=== PATIENT | female | born 2000 | race Caucasian/White ===

== ENCOUNTER → 2020-02-27 10:26 | Outpatient (CLI) | payer OTHER, SELFPAY ==
--- NOTE | 2020-02-27 10:34 | US_ITS ---
PROCEDURE: US TRANSVAGINAL CLINICAL INDICATION: rt. lower quadrant pain and rt. ovarian cyst COMPARISON: CT ABDPELW/O CT ABD PELVIS W/O CONTRAST from 02/15/2017 FINDINGS: UTERUS: 8cm x 5cmx 4cm with a combined endometrial thickness of 6mm LEFT OVARY: [id number] with a volume of 37.8ml. RIGHT OVARY: [id number] with a volume of 6.2ml. There is a 3.6 x 3 cm left ovarian cyst. A smaller cyst is seen along the lateral wall of this cyst. Small amount of fluid is present in the endocervical canal. No cul-de-sac fluid apparent. IMPRESSION: There is a 3.6 cm left ovarian cyst which contains a smaller cyst along the lateral wall. Suggest follow-up to confirm stability/resolution Dictated b Jayjay Fabian MD 02/27/2020 19:17 Jayjay Fabian MD in OV 02/27/2020 19:17
== END ==
PROVIDERS: PCP Family Medicine; Visit Provider Nurse Practitioner Obstetrics & Gynecology
DX: R10.31 Right lower quadrant pain (principal); N83.201 Unspecified ovarian cyst, right side
CPT/HCPCS: 76830

== ENCOUNTER → 2020-07-10 09:51 | Outpatient (CLI) | payer OTHER, SELFPAY ==
[2020-07-10 10:30] LABS: Urine Pregnancy, HCG Qual. Negative (Negative)
[2020-07-10 10:36] LABS: Basophils # 0.1 K/mm3 (0-0.2); Basophils % 0.7 % (0.1-2.0); Eosinophils # 0.1 K/mm3 (0.0-0.4); Eosinophils % 1.4 % (0.1-12.0); Hematocrit 41.5 % (37.0-47.0); Hemoglobin 14.8 g/dL (12.2-16.2); Lymphocytes % 30.1 % (10-50); Mean Corpuscular HGB Conc 35.6 g/dL (31.8-35.4); Mean Corpuscular Hemoglobin 31.7 pg (27.0-31.2); Mean Corpuscular Volume 89.2 fl (81-99); Mean Platelet Volume 8.3 fl (7.4-10.4); Monocytes # 0.4 K/mm3 (0.1-1.0); Monocytes % 6.1 % (1.7-9.3); Neutrophils # 4.1 K/mm3 (1.8-7.8); Neutrophils % 61.7 % (37.0-80.0); Platelet Count 409 K/mm3 (142-424); Red Blood Count 4.65 M/mm3 (4.20-5.40); Red Cell Distribution Width 13.6 % (11.5-17.5); White Blood Count 6.6 K/mm3 (4.8-10.8)
[2020-07-10 11:53] LABS: Coronavirus 19 IgG Antibody Negative (Negative); Coronavirus 19 IgM Antibody Negative (Negative)
== END ==
PROVIDERS: Visit Provider Otolaryngology
DX: Z01.818 Encounter for other preprocedural examination (principal); Z03.818 Encounter for observation for suspected exposure to other biological agents ruled out; J30.9 Allergic rhinitis, unspecified; J34.2 Deviated nasal septum; J34.3 Hypertrophy of nasal turbinates
CPT/HCPCS: 36415; 81025; 85025; 86328

== ENCOUNTER 2020-07-11 06:11 | Day surgery (SDC) | payer OTHER, SELFPAY ==
[2020-07-09 12:35] VITALS: BMI 42.0
[2020-07-11] VITALS (10 sets, daily range): BP systolic 121–145; BP diastolic 59–93; PULSE 72–100; RESP 12–18; TEMP 36.4–36.8; O2SAT 95–97
--- NOTE | 2020-07-11 07:09 | P.PN_ITS ---
[facility] Anesthesia Checklist - Structural Data Admitted From: Home Planned Operative Procedure/s: nasal septoplasty Consent for Planned Operative Procedure(s) Verified: Yes - Additional verifications Anesthesia Reactions: No Hx Blood Transfusions: No Blood Transfusion Reaction: No - Airway Assessment C-Spine Mobility Assessed: Yes TMJ Mobility Assessed: Yes Dentition: Good Dentition - Neurological Assessment Level of Consciousness: Awake, Alert, Appropriate - Anesthesia Plan Anesthesia Risk discussed: Yes Anesthesia Plan: Verified ASA Class: III Anesthesia Type: General [facility] History I have reviewed the patient's past medical history: Yes Medical History: Reports:: Kidney Stones, Nephritis Denies:: Cancer, Diabetes Mellitus Type 1, Diabetes Mellitus Type 2, Internal Pacemaker, MRSA, Seizures *Have you ever received a pneumonia vaccine?: No *Have you received a flu vaccine this season?: No Other Medical History: Denies: Blood Transfusion Reaction Anesthesia experience/problems:: none Laterality Cases: Left: Arthroscopy Knee, Bilateral: Myringotomy (Ear Tubes) Other Surgeries: No: Cancer Surgery, Pacemaker Amputation: No Fractures: No - *Social History Last grade of school completed: High school graduate Smoking Status: Current every day smoker Tobacco Type: cigarettes # Packs/Day (cigarettes): 1 Alcohol Intake: never Substance Use Type: denies use *Occupational Status:: employed Housing: house Household Members: family *Travel in the last 8 weeks: None Family Hx:: No significant family history
--- NOTE | 2020-07-11 08:49 | P.OP_ITS ---
Date of procedure: 07/11/20 Pre-op Diagnosis:: 1. Deviated nasal septum with 90% nasal airflow blockage 2. Hypertrophied bilateral inferior turbinates Post-op Diagnosis:: same Procedure performed:: 1. Nasal septoplasty 2. Bilateral submucous turbinectomies Surgeon:: Reid Gomez MD [employer] [place] SUPPORT:: Amari Dumont Anesthesia: GETA Estimated blood loss (mL): 10 Operative findings:: same Operative note:: With the patient under general anesthesia having been given 1 g of Ancef and 12 mg of Decadron the face was prepped and draped. The eyes were protected with the Steri-Strips. The nose was decongested with topical cocaine and 4 cc of 2% lidocaine with epi were injected into the nasal septum and the nasal antral padgett, there was a severe deviation of the nasal septum to the left anteriorly and to the right posteriorly. A left hemitransfixion incision was made in the mucoperichondrium and mucoperiosteum was elevated from both sides of the nasal septum. The quadrangular cartilage was severely deformed and it was trimmed anteriorly inferiorly and posteriorly. When that was done it was possible to realign the septum in the midline and hold it there with transfixion chromic sutures after Surgicel snow was placed between the flaps. Both inferior turbinates were hyperplastic using the turbinectomy reduction techniques and instruments including the turbinectomy scissors the left inferior turbinate was reduced by 50% in size. Similarly using the same instruments the right inferior turbinate was reduced by 50% in size. Bleeding for all the procedure was less than 10 cc and completely stopped. Bacitracin ointment was placed in the nostrils. And the patient was sent to recovery in good general condition after a drip pad was placed under the nose. The patient was sent to recovery in good general condition. Condition: stable Disposition: PACU Complications:: none
--- NOTE | 2020-07-11 08:56 | HMH.ANESI ---
[facility] Anesthesia Record Part I Intake, IV Amount: 1,500 Estimated blood loss (mL): 0 Urine output (mL): 0 Blood Pressure: 145/93 SaO2: 95 Pulse Rate: 100 Respiratory Rate: 12 Temperature: 98.1 F Patient is:: Awake, Stable Stable to PACU at:: 08:55
--- NOTE | 2020-07-11 09:36 | PC.NURSE ---
09-pt taking sips of ice water w/out difficulty, denies nausea 922-detailed report called to Barak,RN 924-pt transported to post op via stretcher w/zita rails up and left in care of NOMAN Cancino with bed locked in lowest position, vss, pt stable
--- NOTE | 2020-07-12 12:33 | P.PN_ITS ---
[facility] Anesthesia Record Part II Discharge Time: 09:25 Destination: [facility] PACU nurse assessment reviewed?: Yes Patient Condition:: Good Anesthesia Complications:: None Swallowing reflex intact?: Yes Cyanosis?: No Blood Pressure: 121/81 Pulse Rate: 72 Temperature: 97.5 F Mental Status: Alert & Oriented Pain level:: 2 Nausea and/or vomitting:: None Intake, IV Amount: 1,500
[2020-07-12 12:34] VITALS: BP 121/81; PULSE 72; TEMP 36.4
== END 2020-07-11 09:56 | disposition home or self-care (01) ==
LOC: OR 06:13
PROVIDERS: Visit Provider Otolaryngology
PROC: (CPT 30520; principal; 2020-07-11 07:30)
DX: J34.2 Deviated nasal septum (principal); J34.3 Hypertrophy of nasal turbinates; Z87.442 Personal history of urinary calculi; Z87.448 Personal history of other diseases of urinary system; Z87.891 Personal history of nicotine dependence
CPT/HCPCS: 30140; 30520; 96374; 96375; J2405; J2710

== ENCOUNTER → 2020-11-04 10:27 | Outpatient (CLI) | payer OTHER, SELFPAY ==
[2020-11-04 12:13] LABS: HCG,Quantitative < 2 mIU/ml (0-5.42)
== END ==
PROVIDERS: Visit Provider Nurse Practitioner Obstetrics & Gynecology
DX: Z34.90 Encounter for supervision of normal pregnancy, unspecified, unspecified trimester (principal)
CPT/HCPCS: 36415; 84702

== ENCOUNTER 2025-03-28 08:47 | Outpatient (CLI) | payer BC, SELFPAY ==
--- OUTSIDE RECORDS SUMMARY | 2025-03-28 09:05 | XMS_ITS | Clinical Summary ---
Author Organization [facility] Address [address] [place] [address] Phone Care Team Providers Care Slack Cooper Name Role Phone No Pcp, Per Patient Primary Care Provider Unavai lable Allergies No known active allergies Medications amoxicillin-cla vulanate (AUGMENTIN) 875-125 mg Oral Tablet Take 875 mg by mouth 2 times daily. Active promethazine-de xtromethorphan (PROMETHAZINE-D M) 6.25-15 mg/5 mL Oral SyrupIndication s:Acute cough Take 5 mL by mouth every 6 hours as needed. 237 mL 4 Active Additional Information Patient not taking.Reason: Therapy Completed, Reported on 05/13/2024 buPROPion (WELLBUTRIN XL) 150 mg Oral Tablet Sustained Release 24 hr 150 mg. 4 Active Etonogestrel (NEXPLANON) 68 mg Sdrm Implant Once 4 Active metFORMIN (GLUCOPHAGE) 500 mg Oral Tablet 500 mg. 4 Active naltrexone (REVIA) 50 mg Oral Tablet 50 mg. 4 Active Active Problems Problem Noted Date Diagnosed Date Foot sprain, left, initial encounter 11/24/2022 Sprain of left ankle 11/24/2022 Kidney stone 09/19/2013 Chronic abdominal pain 09/19/2013 Lateral meniscus tear 08/01/2012 Overview (08/01/2012): 07-01-12: Injury report scanned. Dr. Diaz 07-12-12: MRI reveals lateral meniscus tear in a radial fashion. Surgical management planned. Dr. Miles report scanned. Immunizations Immunization Administration Dates Next Due DTaP 03/28/2003, 3,11/10/1999,05/21,03/24/1999 Hepatitis B, Unspecified Formulation 11/10/1999, 05/21/1999,1998 HiB, Unspecified Formulation 09/04/2002, 11/10/1999,05/21/1999,03/24 IPV 11/22/2002, 0,05/21/1999,03/24 Influenza Vaccine, Unspecifi ed Formulation 05/27/2010 MMR 11/22/2002,03/10/2000 Meningococcal Conjugate 05/27/2010 Tdap 05/20/2020,05/27/2010 Varicella 02/26/2011,07/26/2000 Surgical History Surgery Date Site/Laterality Comments KNEE ARTHROSCOPY 08/03/2012 Left LEFT KNEE ARTHROSCOPY PARTIAL LATERAL MENISCECTOMY ; Surgeon: Jaziel Miles MD; Location: [facility]; Service: Orthopedics Medical History Medical History Date Comments Kidney stones Ovarian cyst Kidney stones Family History Medical History Relation Name Comments Urolithiasis Brother Urolithiasis Father Heart Disease Maternal Grandfather Heart Disease Maternal Grandmother COPD Mother Anesth Problems Neg Hx Relation Name Status Comments Brother Father Maternal Grandfather Maternal Grandmother Mother Social History Tobacco Use Types Packs/Day Years Used Date Smoking Tobacco: Former Cigarettes Smokeless Tobacco: Never Tobacco Cessation:Counseling Given: Not Answered Alcohol Use Standard Drinks/Week Comments No 0 (1 standard drink = 0.6 oz pur e alcohol) Sexually Active Control Partners Comments Not Currently Comments No Sex and Gender Information Value Date Recorded Sex Assigned at Not on file Legal Sex Female 9:07 AM EDT Gender Identity Not on file Sexual Orientation Not on file Obstetrics History Last Filed Vital Signs Vital Sign Reading Time Taken Comments Blood Pressure 140/76 05/13/2024 12:09 AM EDT Pulse 99 05/13/2024 12:09 AM EDT Temperature 36.8 C (98.3 F) 05/13/2024 12:09 AM EDT Respiratory Rate 16 05/13/2024 12:09 AM EDT Oxygen Saturation 99% 05/13/2024 12:09 AM EDT Inhaled Oxygen Concentration - - Weight 118.8 kg (262 lb) 10/09/2023 4:28 PM EDT Height 157.5 cm (5' 2 ) 10/09/2023 4:28 PM EDT Body Mass Index 47.92 10/09/2023 4:28 PM EDT Plan of Treatment Health Maintenance Due Date Last Done Comments Annual Wellness Exam 2001 HPV (1 - 3-dose series) 2013 Cervical Cancer Screening 11/21/2019 Pap Smear 11/21/2019 COVID-19 Vaccine ( season) 2024 12/04/2020, 11/06/2020 Influenza Vaccine (#1) 2025 05/27/2010, 2009 DTaP/TDaP/Td (8 - Td or Tdap) 05/20/2030 05/20/2020, 05/27/2010, 03/28/2003, Additional history exists Hepatitis B Vaccine Completed 11/10/1999, 05/21/1999, 1998 Meningococcal B Vaccine Aged Out No l onger eligible based on patient's age to complete this topic Pneumococcal Vaccine 0-49 Aged Out No longer eligible based on patient's age to complete this topic Goals Goal Patient Goal Type Associated Problems Recent Progress Patient-Stated? Author Maintain a healthy diet, exercise regularly and maintain an ideal body weight General No Ban Cottrell, Clerical Staff Stay Tobacco Free Lifestyle No Ban Cottrell, Clerical Staff Insurance [facility] [place] [address] Care Teams Slack Cooper Relationship Specialty Start Date End Date No Pcp, Per Patient PCP - General 05/13/24
--- OUTSIDE RECORDS SUMMARY | 2025-03-28 09:05 | XMS_ITS | Clinical Summary ---
Author Organization [facility] Address [address] [place] [address] Care Team Providers Care Analyst Competitive Intelligence Name Role Phone Annabella Jauregui M.D. Primary Care Provider [phone] Source Comments [facility] is fully rolled out with thefollowing exceptions:[facility] Allergies No known active allergies Medications HYDROcodone-acet aminophen (VICODIN) 5-500 MG tablet Take 5 mg by mouth. Active ondansetron (ZOFRAN) 4 MG tablet Active ibuprofen (MOTRIN) 100 MG tablet Active Active Problems Problem Noted Date Diagnosed Date Urolithiasis 04/12/2012 Family History Medical History Relation Name Comments Heart Problems Maternal Grandfather Heart Problems Maternal Grandmother COPD Mother Relation Name Status Comments Maternal Grandfather Maternal Grandmother Mother Social History Tobacco Use Types Packs/Day Years Used Date Smoking Tobacco: Never Alcohol Use Standard Drinks/Week Comments No 0 (1 standard drink = 0.6 oz pur e alcohol) Comments Unknown Sex and Gender Information Value Date Recorded Sex Assigned at Not on file Legal Sex Female 5:34 AM EST Gender Identity Not on file Sexual Orientation Not on file Last Filed Vital Signs Vital Sign Reading Time Taken Comments Blood Pressure 98/52 05/18/2015 6:49 AM EDT Pulse 78 05/18/2015 6:49 AM EDT Temperature 36.6 C (97.9 F) 05/18/2015 6:49 AM EDT Respiratory Rate 16 05/18/2015 6:49 AM EDT Oxygen Saturation 99% 08/16/2014 8:03 PM EST Inhaled Oxygen Concentration - - Weight 84.3 kg (185 lb 13.6 oz) 015 11:35 PM EDT Height 157.5 cm (5' 2.01 ) 08/16/2014 2:25 PM ES T Body Mass Index - - Plan of Treatment Health Maintenance Due Date Last Done Comments MMR IMMUNIZATION (1 of 1 - S tandard series) 11/21/1999 DTAP/Tdap/Td IMMUNIZATION (1 - Tdap) 2005 VARICELLA IMMUNIZATION (1 of 2 - 13+ 2-dose series) 11/21/2011 HPV IMMUNIZATION (1 - 3-dose series) 2013 HEPATITIS B IMMUNIZATION (1 of 3 - 19+ 3-dose series) 2017 AMB SEASONAL FLU VACCINE (#1) 03/26/2025 COVID-19 Vaccine (1 - 2023-2 5 season) 2025 HIB IMMUNIZATION Aged Out No longer e ligible based on patient's age to complete this topic IPV IMMUNIZATION Aged Out No longer e ligible based on patient's age to complete this topic MCV4 IMMUNIZATION Aged Out No longer eligible based on patient's age to complete this topic MENINGOCOCCAL B VACCINE Aged Out No l onger eligible based on patient's age to complete this topic PNEUMOCOCCAL IMMUNIZATION Aged Out No longer eligible based on patient's age to complete this topic Respiratory Syncytial Virus (RSV) <20mo Aged Out No longer eligible b ased on patient's age to complete this topic Insurance [employer] [facility] Care Teams Analyst Competitive Intelligence Relationship Specialty Start Date End Date Annabella Jauregui M.D. [address] [place] [address] PCP - General External Family Practice 03/14/12
== END 2025-03-28 23:59 | disposition home or self-care (01) ==
LOC: LAB 08:47
PROVIDERS: Visit Provider Nurse Practitioner Obstetrics & Gynecology
DX: Z34.90 Encounter for supervision of normal pregnancy, unspecified, unspecified trimester (principal); N92.6 Irregular menstruation, unspecified; Z3A.00 Weeks of gestation of pregnancy not specified
CPT/HCPCS: 36415; 84144; 84702

== ENCOUNTER 2025-04-02 11:24 | Outpatient (CLI) | payer BC, SELFPAY ==
--- OUTSIDE RECORDS SUMMARY | 2025-04-02 11:28 | XMS_ITS | Clinical Summary ---
Author Organization [facility] Address [address] [place] [address] Phone Care Team Providers Care Branch General Manager Name Role Phone No Pcp, Per Patient [...] MENISCECTOMY ; Surgeon: Jaziel Miles MD; Location: [facility]; Service: Orthopedics Medical History Medical History [...] Screening 11/21/2019 Pap Smear 11/21/2019 COVID-19 Vaccine (3 - season) 2025 12/04/2020, 11/06/2020 Influenza Vaccine (#1) 2025 05/27/2010, [...] Lifestyle No Ban Cottrell, Clerical Staff Insurance [facility] [place] [address] Care Teams Branch General Manager Relationship Specialty Start Date End Date No Pcp, Per Patient PCP - General 05/13/24
--- OUTSIDE RECORDS SUMMARY | 2025-04-02 11:28 | XMS_ITS | Clinical Summary ---
Author Organization [facility] Address [address] [place] [address] Care Team Providers Care Information Support Project Manager Name Role Phone Annabella Jauregui M.D. Primary Care Provider [phone] Source Comments [facility] is fully rolled out with thefollowing exceptions:[facility] Allergies No known active allergies Medications [...] age to complete this topic Insurance A[employer] [facility] Care Teams Information Support Project Manager Relationship Specialty Start Date End Date Annabella Jauregui M.D. [address] [place] [address] PCP - General External Family Practice 03/14/12
== END 2025-04-02 23:59 | disposition home or self-care (01) ==
LOC: LAB 11:25
PROVIDERS: Visit Provider Obstetrics & Gynecology
DX: Z34.90 Encounter for supervision of normal pregnancy, unspecified, unspecified trimester (principal); Z3A.00 Weeks of gestation of pregnancy not specified
CPT/HCPCS: 36415; 84702

== ENCOUNTER 2025-04-23 10:45 | Outpatient (CLI) | payer BC, SELFPAY ==
--- OUTSIDE RECORDS SUMMARY | 2025-04-23 10:51 | XMS_ITS | Clinical Summary ---
Author Organization [facility] Address [address] [place] [address] Care Team Providers Care Hr Associate Name Role Phone Annabella Jauregui M.D. Primary Care Provider [phone] Source Comments [facility] is fully rolled out with thefollowing exceptions:[facility] Allergies No known active allergies Medications [...] age to complete this topic Insurance AETNA [facility] Care Teams Hr Associate Relationship Specialty Start Date End Date Annabella Jauregui M.D. [address] [place] [address] PCP - General External Family Practice 03/14/12
--- OUTSIDE RECORDS SUMMARY | 2025-04-23 10:51 | XMS_ITS | Clinical Summary ---
Author Organization [facility] Address [address] [place] [address] Phone Care Team Providers Care Lead Slot Technician Name Role Phone No Pcp, Per Patient [...] MENISCECTOMY ; Surgeon: Jaziel Miles MD; Location: [facility]; Service: Orthopedics Medical History Medical History Date [...] Pap Smear 11/21/2019 COVID-19 Vaccine (3 - 2024- season) 2025 12/04/2020, 11/06/2020 Influenza Vaccine (#1) [...] Lifestyle No Ban Cottrell, Clerical Staff Insurance [employer] PPO Member Subscriber Plan / Payer (Ef fective 2023-Present) Name:Izabella Ino Harrison Relation to Subscriber:Self Name:Kris Parekhhema Harrison Payer ID:[id number] (NAIC) Group ID:Not on file Type:Not on file Address: [address] [place] [phone] Care Teams Lead Slot Technician Relationship Specialty Start Date End Date No Pcp, Per Patient PCP - General 05/13/24
[2025-04-23 11:02] LABS: Hematocrit 37.7 % (37.0-47.0); Hemoglobin 12.9 g/dL (12.2-16.2); Immature Granulocytes % 0.3 %; Mean Corpuscular HGB Conc 34.2 g/dL (31.8-35.4); Mean Corpuscular Hemoglobin 29.4 pg (27.0-31.2); Mean Corpuscular Volume 85.9 fl (81-99); Nucleated Red Blood Cells % 0 %; Platelet Count 375 K/mm3 (142-424); Red Blood Count 4.39 M/mm3 (4.20-5.40); Red Cell Distribution Width-SD 39.9 fL; White Blood Count 7.0 K/mm3 (4.8-10.8)
[2025-04-23 18:03] LABS: Hepatitis C Ab Qual. W/ RFX NEGATIVE (Negative)
[2025-04-24 06:21] LABS: Hepatitis B Surface Antigen Negative (Negative); Rubella Antibodies, IgG 2.02 index (Immune >0.99)
[2025-04-24 15:14] LABS: RPR W/RFX Titers Nonreactive (Nonreactive)
== END 2025-04-23 23:59 | disposition home or self-care (01) ==
LOC: LAB 16:29
PROVIDERS: Visit Provider Nurse Practitioner Obstetrics & Gynecology
DX: O23.40 Unspecified infection of urinary tract in pregnancy, unspecified trimester (principal); Z3A.00 Weeks of gestation of pregnancy not specified
CPT/HCPCS: 36415; 85025; 86592; 86762; 86803; 86850; 87086; 87340; 87389

== ENCOUNTER 2025-04-27 10:05 | Outpatient (CLI) | payer BC, SELFPAY ==
--- OUTSIDE RECORDS SUMMARY | 2025-04-27 10:08 | XMS_ITS | Clinical Summary ---
Author Organization [facility] Address [address] [place] [address] Care Team Providers Care Carpet Layer Name Role Phone Annabella Jauregui M.D. Primary Care Provider [phone] Source Comments [facility] is fully rolled out with thefollowing exceptions:[facility] Allergies No known active allergies Medications HYDROcodone-acet [...] age to complete this topic Insurance [employer] [facility] Care Teams Carpet Layer Relationship Specialty Start Date End Date Annabella Jauregui M.D. [address] [place] [address] PCP - General External Family Practice 03/14/12
--- OUTSIDE RECORDS SUMMARY | 2025-04-27 10:08 | XMS_ITS | Clinical Summary ---
Author Organization [facility] Address [address] [place] [address] Phone Care Team Providers Care Private Sector Executive Name Role Phone No Pcp, Per Patient [...] MENISCECTOMY ; Surgeon: Jaziel Miles MD; Location: [facility]; Service: Orthopedics Medical History Medical History [...] Subscriber Plan / Payer (Ef fective 2023-Present) Name:WilmanmargaretIno Relation to Subscriber:Self Name:Izabella Ino Harrison Payer ID:[id number] (NAIC) Group ID:Not on file Type:Not on file Address: [address] [place] [phone] Care Teams Private Sector Executive Relationship Specialty Start Date End Date No Pcp, Per Patient PCP - General 05/13/24
--- NOTE | 2025-04-27 10:30 | US_ITS ---
PROCEDURE: US OB TRANSVAGINAL CLINICAL INDICATION: dates and viability COMPARISON: No exams were available for comparison FINDINGS: Transvaginal sonographic images of the pelvis were obtained. From her last menstrual period she is 8weeks 0 days. An intrauterine gestational sac is present with a pole with a crown-rump length of 1.73cm This correlates to a gestational age of 8weeks 2days. CORRINE 12/07/2025 heart tones are present with an FHR of 167bpm. Yolk sac is noted. The yolk sac measures 5.7mm. The right ovary is seen and appears normal. The left ovary is seen and appears normal. There is no fluid in the cul-de-sac. IMPRESSION: 1. Viable embryo within the uterine cavity. Heart rate activity is seen. 2. The embryo measures 8 weeks and 2 days which is consistent with her last menstrual period. CORRINE will remain 12/07/2025. 3. The ovaries are difficult to visualize but appear normal. 4. No fluid in the cul-de-sac. Dictated by: Tristen Hector MD 04/27/2025 13:16 Tristen Hector MD in OV 04/27/2025 13:16
== END 2025-04-27 23:59 | disposition home or self-care (01) ==
LOC: RAD 10:06
PROVIDERS: PCP Nurse Practitioner Obstetrics & Gynecology; Visit Provider Nurse Practitioner Obstetrics & Gynecology
DX: Z34.91 Encounter for supervision of normal pregnancy, unspecified, first trimester (principal); Z3A.08 8 weeks gestation of pregnancy
CPT/HCPCS: 76817

== ENCOUNTER 2025-07-23 08:47 | Outpatient (CLI) | payer BC, SELFPAY ==
--- OUTSIDE RECORDS SUMMARY | 2025-06-27 12:45 | XMS_ITS | Encounter Summary ---
Author Organization [facility] [place] [address] Care Team Providers Care Inspector Wire Products Name Role Phone No Pcp, Per Patient Primary Care Provider Lonny angelo Reason for Visit * Reason Comments Sore Throat X yesterday, bilater al ear pain, congestion - 16 weeks Encounter Details Date Type Department Care Team (Late Contact Info) Description 06/27/2025 12:45 PM EST Office [facility] [place] [phone] Rosy Dimas, ARELIS [address] [place] [address] Viral upper respiratory infection (Primary Dx); Sore throat Social History Tobacco Use Types Packs/Day Years Used Date Smoking Tobacco: Former Cigarettes Smokeless Tobacco: Never Alcohol Use Standard Drinks/Week Comments No 0 (1 standard drink = 0.6 oz pur e alcohol) Sexually Active Control Partners Comments Not Currently Estimated Date of Delivery Comme nts Yes 12/07/2025 Sex and Gender Information Value Date Recorded Sex Assigned at Not on file Legal Sex Female 9:07 AM EDT Gender Identity Not on file Sexual Orientation Not on file documented as of this encounter Last Filed Vital Signs Vital Sign Reading Time Taken Comments Blood Pressure 122/80 06/27/2025 12:45 PM EST Pulse 111 06/27/2025 12:45 PM EST Temperature 36.7 C (98.1 F) 06/27/2025 12:45 PM EST Respiratory Rate 20 06/27/2025 12:45 PM EST Oxygen Saturation 99% 06/27/2025 12:45 PM EST Inhaled Oxygen Concentration - - Weight 120.2 kg (265 lb) 06/27/2025 12:45 PM EST Height 157.5 cm (5' 2 ) 06/27/2025 12:45 PM EST Body Mass Index 48.47 06/27/2025 12:45 PM EST documented in this encounter Ordered Prescriptions Prescription Sig Dispense Quantity Refills Last Filled Start Date End Date fluticasone propionate (FLONASE) 50 mcg/actuation Nasl [place], SuspensionIndicatio ns:Viral upper respiratory infection,Sore throat 1 [place] by Nasal route daily. 1 Each 2 06/27/2025 documented in this encounter Progress Notes * Rosy Dimas PA-C - 06/27/2025 12:45 PM EST SERVICE Urgent Care Medicine Chief Complaint Patient presents with Sore Throat X yesterday, bilateral ear pain, congestion - 16 weeks HPI Leatha Parekh is a 24 y.o. female who is 16 weeks presents to urgent care for drainageand sore throat that began yesterday and then today she developed worsening sore throat increased postnasal drainage increase congestion and ear pressure. She states she had a small amount of blood and mucus when coughing and blowing her nose. She does not believe she had a recent nosebleed but wondering if this is the cause. She denies chest pain or shortness of breath. She denies fevers but does complain of fatigue body aches and headaches. She has had COVID exposure. Subjective Problem List[1] Medications ordered prior to the current encounter[2] Allergies[3] Social Social History[4] Family History[5] Review of Systems Constitutional: Positive for fatigue. Negative for fever. HENT: Positive for congestion, ear pain, postnasal drip and sore throat. Respiratory: Positive for cough. Negative for chest tightness and shortness of breath. Gastrointestinal: Negative for diarrhea, nausea and vomiting. Musculoskeletal: Positive for myalgias. Neurological: Positive for headaches. Objective Vitals: 06/27/25 1245 BP: 122/80 BP Location: Left arm Patient Position: Sitting Pulse: 111 Resp: 20 Temp: 98.1 ??F (36.7 ??C) TempSrc: Oral SpO2: 99% Weight: 265 lb (120.2 kg) Height: 5' 2 (1.575 m) Physical Exam Vitals reviewed. Constitutional: Appearance: Normal appearance. HENT: Head: Normocephalic and atraumatic. Right Ear: Tympanic membrane normal. Left Ear: Tympanic membrane normal. Nose: Congestion present. Mouth/Throat: Pharynx: Posterior oropharyngeal erythema present. Eyes: Extraocular Movements: Extraocular movements intact. Pupils: Pupils are equal, round, and reactive to light. Cardiovascular: Rate and Rhythm: Normal rate and regular rhythm. Pulses: Normal pulses. Heart sounds: Normal heart sounds. Pulmonary: Effort: Pulmonary effort is normal. No respiratory distress. Breath sounds: Normal breath sounds. Musculoskeletal: Cervical back: Normal range of motion and neck supple. Skin: General: Skin is warm and dry. Neurological: General: No focal deficit present. Mental Status: She is alert and oriented to person, place, and time. Psychiatric: Mood and Affect: Mood normal. Behavior: Behavior normal. Results for orders placed or performed in visit on 06/27/25 POCT CEPHEID STREP A DNA Result Value Ref Range STREP A DNA Negative Negative, Invalid Lot Number [id number] Expiration Date 5466,026 SeriAl # Control Line Yes YES/NO No results found. Assessment and Plan Leatha was seen today for sore throat. Diagnoses and all orders for this visit: Viral upper respiratory infection - POCT CEPHEID SARS COV-2 RNA + FLU A/B + RSV - POCT CEPHEID STREP A DNA Sore throat - POCT CEPHEID SARS COV-2 RNA + FLU A/B + RSV - POCT CEPHEID STREP A DNA COURSE, MEDICAL DECISION MAKING, & PLAN 24 y.o. female seen today for sore throat and upper respiratory symptoms that developed in the last24 hours Flu, COVID, RSV, and strep are all negative Discussed symptomatic treatment as symptoms are likely viral in nature. Given instructions on conservative care for this condition and signs and symptoms to follow-up on immediately. F/u: with primary care physician if symptoms persist Appropriate PPE for the presenting complaint was donned prior to evaluation. This chart was completed using [employer] voice recognition technology and may contain unintended errors. Educated patient regarding the care plan and instructions listed on the After Visit Summary [AVS] for today's visit. They verbalized full understanding of the care plan and instructions given on the AVS for today's visit. Rosy Dimas PA-C [1] Patient Active Problem List Diagnosis Lateral meniscus tear Kidney stone Chronic abdominal pain Foot sprain, left, initial encounter Sprain of left ankle Nexplanon insertion Nexplanon removal Urolithiasis [2] Current Outpatient Medications on File Prior to Visit Medication Sig Dispense Refill aspirin 81 mg Oral Tablet, Delayed Release (E.C.) Take 81 mg by mouth daily. buPROPion (WELLBUTRIN XL) 150 mg Oral Tablet Sustained Release 24 hr 150 mg. Etonogestrel (NEXPLANON) 68 mg Sdrm Implant Once metFORMIN (GLUCOPHAGE) 500 mg Oral Tablet 500 mg. naltrexone (REVIA) 50 mg Oral Tablet 50 mg. amoxicillin-clavulanate (AUGMENTIN) 875-125 mg Oral Tablet Take 875 mg by mouth 2 times daily. (Patient not taking: Reported on 10/09/2023) nitrofurantoin, macrocrystal-monohydrate, (MACROBID) 100 mg Oral Capsule Take 100 mg by mouth 2 times daily. for 7 days promethazine-dextromethorphan (PROMETHAZINE-DM) 6.25-15 mg/5 mL Oral Syrup Take 5 mL by mouth every6 hours as needed. (Patient not taking: Reported on 05/13/2024) 237 mL 0 No current facility-administered medications on file prior to visit. [3] No Known Allergies [4] Social History Socioeconomic History Marital status: Single Spouse name: None Number of children: None Years of education: None Highest education level: None Tobacco Use Smoking status: Former Current packs/day: 0.25 Types: Cigarettes Smokeless tobacco: Never Vaping Use Vaping status: Never Used Substance and Sexual Activity Alcohol use: No Drug use: No Sexual activity: Not Currently [5] Family History Problem Relation Age of Onset Anesth Problems Neg Hx COPD Mother Heart Disease Maternal Grandfather Heart Disease Maternal Grandmother Urolithiasis Father Urolithiasis Brother documented in this encounter Miscellaneous Notes * Patient Instructions - Rosy Dimas PA-C - 06/27/2025 12:45 PM EST strep is negative flu, COVID, and RSV are pending. If negative we will send you a [employer] message. If positive we will call you with results. Due to length of symptoms I suspect symptoms are likely viral in nature. Antibiotics do not treat viral symptoms strep is pending, if positive will need to send in antibiotic. If negative symptoms are likely viral Recommend isolating until you have been fever free for 24 hours without the use of Tylenol or Motrin, have mild symptoms, and/or symptoms are improving. If positive for the flu you would qualify for Tamiflu. Is an antiviral that may help the flu run its course faster by 24 to 48 hours. Side effects are diarrhea and upset stomach. If positive for COVID-19, patients that are high risk and be treated with antivirals. If you are not considered high risk it is symptomatic treatment. medications safe during for congestions and cough delsym, mucinex (guaifenesin),mucinex DM guaifenesin/dextromethorphan,flonase, and benadryl I recommend isolating until you have been fever free for 24 hours without the use of Tylenol you have mild symptoms, or symptoms are improving. Please alternate with Tylenol for fever Education on importance of staying hydrated with water, eating healthy avoid sugar, and obtaining adequate sleep to support immune system function. Viral and bacterial upper respiratory infections are contagious. They are spread through the air bycoughing, sneezing, or by direct contact (touching your own eyes, nose, or mouth). Frequent handwashing will decrease risk of spreading to others. Most upper respiratory infections aresolve within 7 to 14 days with rest, staying hydrated, eating healthy, and obtaining adequate sleep. However, symptoms may sometimes linger up to 4 weeks. Antibiotics do not treat viral infections. May use aspirin or ibuprofen and/or Tylenol for symptom management. May use ambw-dsq-vmrxrfq Flonase (fluticasone) to decrease sinus congestion. For cough use ieiw-cyf-xzwdszt cough suppressant at night only, cough drops during the day. Also for cough may try humidifier next to bed at night and teaspoon of honey. You may also try VapoRub tablets in the shower or VapoRub. I recommend trying to only use nrlx-vbp-zgpoiup's prior to bed to help symptoms feel better to sleep better. Recommend tryingto avoid during the day as taking to too many vuko-uzy-dhioamo medications can potentially make things worse. Pt verbalized understanding and agreement with this plan. documented in this encounter Plan of Treatment Not on file documented as of this encounter Goals Goal Patient Goal Type Associated Problems Recent Progress Patient-Stated? Author Maintain a healthy diet, exercise regularly and maintain an ideal body weight General No Ban Cottrell, Clerical Staff Stay Tobacco Free Lifestyle No Ban Cottrell, Clerical Staff documented as of this encounter Procedures Procedure Name Priority Date/Time Associated Diagnosis Comments POCT CEPHEID SARS COV-2 RNA + FLU A/B + RSV Routine 06/27/2025 1:24 PM EST Viral upper respiratory infection Sore throat POCT CEPHEID STREP A DNA Routine 06/27/2025 1:12 PM EST Viral upper respiratory infection Sore throat documented in this encounter Results * POCT CEPHEID SARS COV-2 RNA + FLU A/B + RSV (06/27/2025 1:24 PM EST) Pathologist [facility] SARS COV-2 RNA Negative Negative, Invalid SEP OFFICE INFLUENZA A Negative Negative, Invalid SEP OFFICE INFLUENZA B Negative Negative, Invalid SEP OFFICE RSV Negative Negative, Invalid SEP OFFICE Lot Number [id number] SEP OFFICE Expiration Date SEP OFFICE SeriAl # 06/30/26 SEP OFFICE Control Line Yes YES/NO SEP OFFICE 06/27/2025 1:24 PM EST Rosy Dimas PA-C POINT OF CARE TEST ORDE GUMARO Final Result SEP OFFICE * POCT CEPHEID STREP A DNA (06/27/2025 1:12 PM EST) STREP A DNA Negative Negative, Invalid SEP OFFICE Lot Number [id number] SEP OFFICE Expiration Date [id number] SEP OFFICE SeriAl # SEP OFFICE Control Line Yes YES/NO SEP OFFICE 06/27/2025 1:12 PM EST Rosy Dimas PA-C POINT OF CARE TEST JACKSON NAIK Final Result SEP OFFICE documented in this encounter Visit Diagnoses Diagnosis Viral upper respiratory infection- Primary Acute upper respiratory infections of unspecified site Sore throat Acute pharyngitis documented in this encounter Historical Medications * This list may reflect changes made after this encounter. nitrofurantoin, macrocrystal-monoh ydrate, (MACROBID) 100 mg Oral Capsule Take 100 mg by mouth 2 times daily. for 7 days 06/18/2025 aspirin 81 mg Oral Tablet, Delayed Release (E.C.) Take 81 mg by mouth daily. 06/18/2025 added in this encounter Care Teams Inspector Wire Products Relationship Specialty Start Date End Date No Pcp, Per Patient PCP - General 05/13/24 documented as of this encounter
--- OUTSIDE RECORDS SUMMARY | 2025-07-23 08:51 | XMS_ITS | Clinical Summary ---
Author Organization [facility] Address [address] [place] [address] Phone Care Team Providers Care Manufacturing Team Member Name Role Phone No Pcp, Per Patient Primary Care Provider Unavai lable Allergies No known active allergies Medications amoxicillin-clav ulanate (AUGMENTIN) 875-125 mg Oral Tablet Take 875 mg by mouth 2 times daily. Active promethazine-dex tromethorphan (PROMETHAZINE-DM ) 6.25-15 mg/5 mL Oral SyrupIndications :Acute cough Take 5 mL by mouth every [...] mg Oral Tablet 50 mg. 4 Active aspirin 81 mg Oral Tablet, Delayed Release (E.C.) Take 81 mg by mouth daily. 5 Active nitrofurantoin, macrocrystal-mon ohydrate, (MACROBID) 100 mg Oral Capsule Take 100 mg by mouth 2 times daily. for 7 days 5 Active fluticasone propionate (FLONASE) 50 mcg/actuation Nasl [place], SuspensionIndica tions:Viral upper respiratory infection,Sore throat 1 [place] by Nasal route daily. 1 Each 2 Active Active Problems Problem Noted Date Diagnosed Date Nexplanon insertion 06/27/2025 Nexplanon removal 06/27/2025 Foot sprain, left, initial encounter 11/24/2022 Sprain of left ankle 11/24/2022 Kidney stone 09/19/2013 Chronic abdominal pain 09/19/2013 Lateral meniscus tear 08/01/2012 Overview (08/01/2012): 07-01-12: Injury report scanned. Dr. Diaz 07-12-12: MRI reveals lateral meniscus tear in a radial fashion. Surgical management planned. Dr. Miles report scanned. Urolithiasis 04/12/2012 Estimated Date of Delivery Comme nts Yes 12/07/2025 Encounters Date Type Department Care Team Description 06/27/2025 12:45 PM EST Office Visit [facility] [address] [phone] Rosy Dimas, ARELIS Viral upper respiratory infection (Primary Dx); Sore throat from Last 3 Months Immunizations Immunization Administration Dates Next Due DTaP 03/28/2003, 3,11/10/1999,05/21,03/24/1999 DTaP, Unspecified Formulation 03/28/2003, 003 Hepatitis B, Unspecified Formulation 11/10/1999, 05/21/1999,1998 HiB (PRP-OMP) 09/04/2002 HiB, Unspecified Formulation 09/04/2002, 11/10/1999,05/21/1999,03/24 IPV 11/22/2002, 0,05/21/1999,03/24 Influenza Seasonal Injectable PF 05/27/2010 Influenza Vaccine, Unspecifi ed Formulation 05/27/2010 MMR 11/22/2002,03/10/2000 Meningococcal Conjugate 05/27/2010 Tdap 05/20/2020,05/27/2010 Varicella 02/26/2011,07/26/2000 Surgical History Surgery Date Site/Laterality Comments KNEE ARTHROSCOPY 08/03/2012 Left LEFT KNEE ARTHROSCOPY PARTIAL LATERAL MENISCECTOMY ; Surgeon: Jaziel Miles MD; Location: [facility]; Service: Orthopedics Medical History Medical History Date [...] Sexual Orientation Not on file Obstetrics History Para Term AB IAB SAB Ectopic Multiple Livin g Live Births 1 Date Outcome GA Total Labor Labor/2nd/3rd Weight Sex Type Anes PTL Mary A1 A5 Name Clin Current Last Filed Vital Signs Vital Sign Reading [...] Mass Index 48.47 06/27/2025 12:45 PM EST Plan of Treatment Health Maintenance Due Date Last Done Comments Annual Wellness Exam 2001 HPV (1 - 3-dose series) 2013 Cervical Cancer Screening 11/21/2019 Pap Smear 11/21/2019 DTaP/TDaP/Td (8 - Td or Tdap) 05/20/2030 05/20/2020, 05/27/2010, 03/28/2003, Additional history exists Hepatitis B Vaccine Completed 11/10/1999, 05/21/1999, 1998 COVID-19 Vaccine Completed 04/30/2025, 06/2021, 11/06/2020 Influenza Vaccine Completed 04/30/2025, , 05/27/2010 Meningococcal B Vaccine Aged Out No l onger eligible based on patient's age to complete this topic Pneumococcal Vaccine 0-49 Aged Out No longer eligible based on patient's age to complete this topic RSV or 60+ (No Doses Required) Completed Goals Goal Patient Goal Type Associated Problems Recent Progress Patient-Stated? Author Maintain a healthy diet, exercise regularly and maintain an ideal body weight General No Ban Cottrell, Clerical Staff Stay Tobacco Free Lifestyle No Ban Cottrell, Clerical Staff Procedures Procedure Name Priority Date/Time Associated Diagnosis Comments POCT CEPHEID SARS COV-2 RNA + FLU A/B + RSV Routine 06/27/2025 1:24 PM EST Viral upper respiratory infection Sore throat POCT CEPHEID STREP A DNA Routine 06/27/2025 1:12 PM EST Viral upper respiratory infection Sore throat from Last 3 Months Results * POCT CEPHEID SARS COV-2 RNA + FLU A/B + RSV (06/27/2025 1:24 PM EST) SARS COV-2 RNA Negative Negative, Invalid SEP [...] TEST JACKSON NAIK Final Result SEP OFFICE * POCT CEPHEID STREP A DNA (06/27/2025 1:12 PM EST) STREP A DNA Negative Negative, Invalid SEP OFFICE Lot Number [id number] SEP OFFICE Expiration Date [id number] SEP OFFICE SeriAl # SEP OFFICE Control Line Yes YES/NO SEP OFFICE 06/27/2025 1:12 PM EST Rosy Dimas PA-C POINT OF CARE TEST JACKSON NAIK Final Result SEP OFFICE from Last 3 Months Insurance [facility] MED[facility] on file [facility] Care Teams Manufacturing Team Member Relationship Specialty Start Date End Date No Pcp, Per Patient PCP - General 05/13/24
--- OUTSIDE RECORDS SUMMARY | 2025-07-23 08:51 | XMS_ITS | Clinical Summary ---
Author Organization [facility] Address [address] [place] [id number] Care Team Providers Care Spike Machine Operator Name Role Phone Annabella Jauregui MD Primary Care Provider [phone] [facility] is fully rolled out with thefollowing exceptions:[facility] Allerg[facility] No known active allergies Medications [...] 11/21/1999 DTAP/Tdap/Td IMMUNIZATION (1 - Tdap) 2005 Yearly Physical Ages 3-18+ 2009 VARICELLA IMMUNIZATION (1 of 2 - 13+ 2-dose series) 11/21/2011 HPV IMMUNIZATION (1 - 3-dose series) 2013 HEPATITIS B IMMUNIZATION (1 of 3 - 19+ 3-dose series) 2017 AMB SEASONAL FLU VACCINE (#1) 03/26/2025 COVID-19 Vaccine (1 - 2024-2 6 season) 2025 HIB IMMUNIZATION Aged Out No [...] age to complete this topic Insurance [facility] [facility] Care Teams Spike Machine Operator Relationship Specialty Start Date End Date Annabella Jauregui MD [address] [place] [address] PCP - General External Family Practice 03/14/12
--- NOTE | 2025-07-23 09:00 | US_ITS ---
PROCEDURE: US OB /MATERNAL DETAIL CLINICAL INDICATION: 20 week anatomy COMPARISON: US US OB TRANSVAGINAL from 04/27/2025 FINDINGS: Transabdominal sonographic images of the pelvis were obtained. From her established due date she is 20 weeks 3 days. Single viable intrauterine gestation. Cephalic position. Placenta: Anteriorplacenta grade 1. There is an average amount of fluid. The cervix appears satisfactory. Closed and measuring 6.73 cm in length. Complete survey performed and was unremarkable on the submitted images as in PACS. No discrete anomalies identified on survey imaging by technologist. Active fetus. Three-vessel cord with satisfactory umbilical cord insertion. 4- chamber heart noted. Situs, aortic arch, LVOT, RVOT, three-vessel view appear normal. Survey of brain & ventricles Unremarkable. Cerebellum, thalamus, choroid plexus, cisterna magna appear normal. Face and neck survey unremarkable. Profile, nasion, lips and nose appeared normal. Diaphragm and chest views unremarkable. Abdomen: Both kidneys noted and unremarkable. Stomach and bladder noted and satisfactory. Spine: Survey of the spine satisfactory with no anomalies identified nor imaged. Cervical, thoracic, lower spine appear normal. Both arms and legs noted. Amniotic Fluid: Adequate. MVP 5.40 cm Measurements: Average ultrasound age 20weeks 5days. Estimated due date by ultrasound age 0512/05/2025. Estimated weight 360g BPD = 21weeks 0 days HC = 20weeks 4days AC = 20weeks 4days FL = 20weeks 5days Growth Percentile= 51 Heart Rate = 152bpm Cerebellum = 20weeks 1day Humerus = 20weeks 1day HC/AC is 1.19 FL/BPD is 0.69 FL/AC is 0.22 IMPRESSION: 1. Viable fetus in the cephalic presentation with an anterior placenta grade 1. Somewhat difficult exam secondary to maternal body habitus and position of the baby. 2. The fluid is within normal limits with an MVP 5.40 cm 3. Anatomical scan appears normal. 4. biometry is consistent with the dates. Dictated by: Tristen Hector MD 07/24/2025 09:33 Tristen Hector MD in OV 07/24/2025 09:33
== END 2025-07-23 23:59 | disposition home or self-care (01) ==
LOC: RAD 08:47
PROVIDERS: PCP Nurse Practitioner Obstetrics & Gynecology; Visit Provider Nurse Practitioner Obstetrics & Gynecology
DX: O23.42 Unspecified infection of urinary tract in pregnancy, second trimester (principal); Z3A.20 20 weeks gestation of pregnancy
CPT/HCPCS: 76811